=== PATIENT | male | born 1950 | race Hispanic/Latino ===

== ENCOUNTER → 2018-01-24 | Outpatient (CLI) | payer OTHER ==
[~2018-01-24] MED LIST: ALEVE220 MG PO; AVODART0.5 MG PO; FINASTERIDE5 MG PO; FLOMAX0.4 MG PO; TYLENOL325 MG PO
== END ==
LOC: RAD 12:49
PROVIDERS: ATTEND Urology
DX: N20.0 Calculus of kidney (principal)
CPT/HCPCS: 74018